=== PATIENT | female | born 1975 | race Caucasian/White ===

== ENCOUNTER 2018-01-23 22:39 | Observation (INO) | payer OTHER ==
[2018-01-23 23:07] VITALS: BMI 37.1
[2018-01-23] MEDS ORDERED: Sodium Chloride 0.9% 1,000 ML IV STA (23:53)
[2018-01-24 00:14] LABS: ALB/GLOB RATIO 1.3 (1.1-1.8); ALBUMIN 4.6 g/dL (3.0-4.8); ALT/SGPT 45 U/L (7-56); AST/SGOT 31 U/L (14-36); BLOOD UREA NITROGEN 18 mg/dL (7-21); CALCIUM 9.3 mg/dL (8.4-10.5); GFR NON-AFRICAN AMERICAN > 60; LIPASE 31 U/L (23-300)
[2018-01-24 00:23] LABS: BASO # 0.02 K/mm3 (0.0-2.0); BASO % 0.2 % (0.0-3.0); EOS # 0.1 (0.0-0.7); EOS % 1.2 % (1.5-5.0); GRAN # 9.54 (1.4-6.5); GRAN % 81.1 % (50.0-68.0); LYMPH # 1.6 (1.2-3.4); LYMPH % 13.8 % (22.0-35.0); MEAN CELL VOLUME 88.3 fl (80.0-105.0); MEAN CORPUSCULAR HEMOGLOBIN 29.8 pg (25.0-35.0); MEAN CORPUSCULAR HGB CONC 33.7 g/dl (31.0-37.0); MEAN PLATELET VOLUME 10.9 fl (7.0-11.0); MONO # 0.4 (0.1-0.6); MONO % 3.7 % (1.0-6.0); RBC 4.7 10^6/uL (3.5-6.1); RED CELL DISTRIBUTION WIDTH 12.9 % (11.5-14.5); URINE BILIRUBIN NEGATIVE (NEGATIVE); URINE BLOOD NEGATIVE (NEGATIVE); URINE GLUCOSE (UA) NEGATIVE (NEGATIVE); URINE LEUKOCYTE ESTERASE TRACE Leu/uL (NEGATIVE); URINE PROTEIN TRACE mg/dL (<30 mg/dL); URINE UROBILINOGEN 0.2 E.U./dL (<1 E.U./dL); WHITE BLOOD COUNT 11.8 10^3/uL (4.5-11.0)
[2018-01-24 00:30] LABS: URINE APPEARANCE CLEAR (CLEAR); URINE COLOR YELLOW (YELLOW)
[2018-01-24] MEDS ORDERED: Iohexol 350 MG/100 ML VIAL ONE (00:43)
[2018-01-24 00:51] LABS: URINE BACTERIA FEW (NEG); URINE RBC 0 - 2 /hpf (0-2)
--- NOTE | 2018-01-24 00:56 | ED PDOC ---
Arrival/HPI - General Chief Complaint: Abdominal Pain Time Seen by Provider: 01/23/18 23:21 Historian: Patient - History of Present Illness Narrative History of Present Illness (Text): 01/24/18 00:54 42-year-old female presents today with diffuse abdominal pain that started this morning. Patient states she woke up feeling fine shortly after eating breakfast states severe pain across the entire abdomen associated with nausea no vomiting. Patient states she was able to rest and the pain seemed to have improved and then around 3:00 the pain returned worse than earlier associated with multiple episodes of vomiting and diarrhea. Patient denies chest pain or shortness of breath. She is complaining of chronic back pain. Patient denies fevers or chills. Denies any urinary symptoms. No other complaints. Symptom Onset: Gradual Symptom Course: Intermittent Quality: Cramping Severity Level: Moderate Past Medical History - Provider Review Nursing Documentation Reviewed: Yes - Travel History Have you recently traveled outside [place] w/in the past 3 mons?: No - Infectious Disease Hx of Infectious Diseases: None - Reproductive Menopause: No Family/Social History - Physician Review Nursing Documentation Reviewed: Yes Family/Social History: Unknown Family HX Smoking Status: Light Smoker < 10 Cigarettes Daily Hx Alcohol Use: Yes Frequency of alcohol use: Socially Hx Substance Use: No Allergies/Home Meds Allergies/Adverse Reactions: Allergies No Known Allergies Allergy (Verified 01/23/18 23:10) Review of Systems - Review of Systems Constitutional: absent: Fatigue, Fevers Respiratory: absent: SOB, Cough Cardiovascular: absent: Chest Pain, Palpitations Gastrointestinal: Abdominal Pain, Diarrhea, Nausea, Vomiting. absent: Constipation Genitourinary Female: absent: Dysuria, Frequency, Hematuria Musculoskeletal: Back Pain. absent: Arthralgias, Neck Pain Skin: absent: Rash, Pruritis Neurological: absent: Headache, Dizziness Psychiatric: absent: Anxiety, Depression, Suicidal Ideation Physical Exam Vital Signs Reviewed: Yes Vital Signs Temp Pulse Resp BP Pulse Ox 01/23/18 23:07 97.6 F 85 18 174/98 H 99 Temperature: Afebrile Blood Pressure: Hypertensive Pulse: Regular Respiratory Rate: Normal Appearance: Positive for: Well-Appearing, Non-Toxic, Comfortable Pain Distress: None Mental Status: Positive for: Alert and Oriented X 3 - Systems Exam Head: Present: Atraumatic Mouth: Present: Moist Mucous Membranes Neck: Present: Normal Range of Motion Respiratory/Chest: Present: Clear to Auscultation, Good Air Exchange. No: Respiratory Distress, Accessory Muscle Use Cardiovascular: Present: Regular Rate and Rhythm, Normal S1, S2. No: Murmurs Abdomen: Present: Tenderness (+ ruq/luq epigastric tenderness. + llq tenderness ), Normal Bowel Sounds, Guarding (voluntary). No: Distention, Peritoneal Signs, Rebound Back: Present: Normal Inspection. No: CVA Tenderness, Midline Tenderness, Pa raspinal Tenderness Upper Extremity: Present: Normal ROM Lower Extremity: Present: Normal ROM Neurological: Present: GCS=15, Speech Normal Skin: Present: Warm, Dry, Normal Color. No: Rashes Psychiatric: Present: Alert, Oriented x 3 Medical Decision Making ED Course and Treatment: 01/24/18 00:59 Patient is nontoxic well appearing with stable vital signs presenting with severe abdominal pain n/v/d. CBC wbc; 11.8 CMP: glucose; 170 Lipase wnl Urinalysis trace leukocytes, + ketones CAT scan: COMMENTS: Uncomplicated colonic diverticulosis. Diffuse thickening of the colon. The liver is of uniform attenuation without mass or defect. There is no intra or extrahepatic biliary ductal dilatation. The spleen is normal. The gallbladder is surgically absent. The pancreas is of normal contour and attenuation characteristics. There is no evidence of adrenal mass. Both kidneys demonstrate prompt and equal nephrograms. The kidneys are normal in size, shape and configuration. There is no evidence of renal or ureteral mass. No renal or ureteral calculi are identified. There is no hydroureter or hydronephrosis. No evidence for appendicitis. No evidence for small or large bowel obstruction. There is no evidence of abdominal ascites or lymphadenopathy. There is no evidence of intrinsic or extrinsic bladder mass. There is no pelvic ascites or lymphadenopathy. Images of the lung bases show no evidence of pleural or parenchymal mass. There are no pleural effusions. The bony structures are free of lytic or blastic lesions. IMPRESSION: Uncomplicated colitis. Patient reassessment:pt with continued pain. blood cultures pending ct shows colitis. pt started on rocephin and flagyl IV. Discussed all results with patient in depth case discussed with dr. finley; accepts obs status admission for colitis and abdominal pain Impression: Abdominal pain, colitis, leukocytosis admit observational status med/surg - Lab Interpretations Lab Results: 01/23/18 23:55 01/23/18 23:55 Lab Results 01/23/18 23:55: Urine Color Yellow, Urine Appearance Clear, Urine pH 7.0, Ur Specific [place] 1.015, Urine Protein Trace H, Urine Glucose (UA) Negative, Urine Ketones 40 H, Urine Blood Negative, Urine Nitrate Negative, Urine Bilirubin Negative, Urine Urobilinogen 0.2, Ur Leukocyte Esterase Trace H, Urine RBC 0 - 2, Urine WBC 2 - 5, Ur Epithelial Cells 3 - 4, Urine Bacteria Few 01/23/18 23:55: WBC 11.8 H, RBC 4.70, Hgb 14.0, Hct 41.5, MCV 88.3, MCH 29.8, MCHC 33.7, RDW 12.9, Plt Count 337, MPV 10.9, Gran % 81.1 H, Lymph % (Auto) 13.8 L, [place] % (Auto) 3.7, Eos % (Auto) 1.2 L, Baso % (Auto) 0.2, Gran # 9.54 H, Lymph # (Auto) 1.6, [place] # (Auto) 0.4, Eos # (Auto) 0.1, Baso # (Auto) 0.02 01/23/18 23:55: Sodium 139, Potassium 4.1, Chloride 100, Carbon Dioxide 29, Anio n Gap 14, BUN 18, Creatinine 0.9, Est GFR ( Amer) > 60, Est GFR (Non-Af Amer) > 60, Random Glucose 170 H, Calcium 9.3, Total Bilirubin 0.3, AST 31, ALT 45, Alkaline Phosphatase 111, Total Protein 8.0, Albumin 4.6, Globulin 3.5, Albumin/Globulin Ratio 1.3, Lipase 31 - RAD Interpretation Radiology Orders: 01/24/18 00:01 ABD & PELVIS IV CONTRAST ONLY [CT] Stat - Medication Orders Current Medication Orders: Discontinued Medications Sodium Chloride (Sodium Chloride 0.9%) 1,000 mls @ 999 mls/hr IV .Q1H1M STA Stop: 01/24/18 00:53 Last Admin: 01/24/18 00:05 Dose: 999 mls/hr eMAR Start Stop Document 01/24/18 00:05 AD (Rec: 01/24/18 00:13 AD [id number]) Intravenous Solution Start Date 01/24/18 Start Time 00:05 Ondansetron HCl (Zofran Inj) 4 mg IVP STAT STA Stop: 01/23/18 23:54 Last Admin: 01/24/18 00:13 Dose: 4 mg IVP Administration Document 01/24/18 00:13 AD (Rec: 01/24/18 00:13 AD [id number]) Charges for Administration # of IVP Administrations 1 Pantoprazole Sodium (Protonix Inj) 40 mg IVP STAT STA Stop: 01/23/18 23:54 Last Admin: 01/24/18 00:13 Dose: 40 mg IVP Administration Document 01/24/18 00:13 AD (Rec: 01/24/18 00:13 AD [id number]) Charges for Administration # of IVP Administrations 1 Disposition/Present on Arrival - Present on Arrival Any Indicators Present on Arrival: No History of DVT/PE: No History of Uncontrolled Diabetes: No Urinary Catheter: No History of Decub. Ulcer: No History Surgical Site Infection Following: None - Disposition Have Diagnosis and Disposition been Completed?: Yes Diagnosis: Colitis, Abdominal pain, Leukocytosis Disposition: HOSPITALIZED Disposition Time: 01:40 Patient Plan: Observation Condition: FAIR Forms: [email or web address] (Vietnamese)
[2018-01-24] MEDS ORDERED: metroNIDAZOLE IV 500 mg/100 ml 500 MG/100 ML BAG IVPB STA (01:46)
[2018-01-24] MEDS ORDERED: cefTRIAXone 1 gm 1 GM/100 ML BAG IVPB STA (01:46)
[2018-01-24] MEDS ORDERED: Morphine 4 mg/ml ISec IVP STA (01:46)
[2018-01-24] MEDS ORDERED: metroNIDAZOLE IV 500 mg/100 ml 500 MG/100 ML BAG IVPB SCH (07:45)
--- NOTE | 2018-01-24 08:24 | CP.PCM.CON ---
History of Present Illness - History of Present Illness History of Present Illness: GI Fellow PGY4, Consult note. Delia Murray, 42F, hx of fibromyalgia, presenting with acute abdominal pain. The paid suddenly occured after eating breakfast, improved, and then dramatically worsened later the same day. She admits multiple episodes of non- bloody vomiting and diarrhea. No fever. She admits recurrent abdominal pains and frequent BMs chronically. She has never been evaluated by GI in the past, no EGD or colonoscopy. She was recently placed on 3 medications by PMD, Diclofenac, ranitidine, gabapentin. She denies recent abx, hospitalization, travel or sick contacts, undercooked food. She has been afebrile, slightly elevated WBC. CMP unremarkable. CT abd/pelv showed right sided colitis w/o complications. Today, she is feeling better last episode of vomiting and diarrhea was yesterday. She has tolerated liquids today. PMHx - as above. PSHx - No EGD or CSPY FMHx - Aunt had Crohns disease. Denies hx of GI cancer in relatives. SocHx - Smoke 1/2 PPD since teenager. Drinks alcohol rarely. 12pt ROS completed and negative except for above. Past Patient History - Infectious Disease Hx of Infectious Diseases: None - Past Social History Smoking Status: Light Smoker < 10 Cigarettes Daily - NEUROLOGICAL Other/Comment: fibromyalgia - MUSCULOSKELETAL/RHEUMATOLOGICAL Other/Comment: sciatica - PSYCHIATRIC Hx Substance Use: No - SURGICAL HISTORY Hx Surgeries: No - ANESTHESIA Hx Anesthesia: No Hx Anesthesia Reactions: No Hx Malignant Hyperthermia: No Meds Allergies/Adverse Reactions: Allergies Allergy/AdvReac Type Severity Reaction Status Date / Time No Known Allergies Allergy Verified 01/23/18 23:10 - Medications Medications: Current Medications Metronidazole (Flagyl) 500 mg in 100 mls @ 100 mls/hr IVPB Q8 [place]; Protocol Physical Exam - Constitutional Appears: Non-toxic, No Acute Distress - Head Exam Head Exam: ATRAUMATIC, NORMAL INSPECTION - Eye Exam Eye Exam: EOMI, Normal appearance - ENT Exam ENT Exam: Mucous Membranes Moist, Normal Exam - Respiratory Exam Respiratory Exam: Clear to Auscultation Bilateral, NORMAL BREATHING PATTERN - Cardiovascular Exam Cardiovascular Exam: REGULAR RHYTHM, +S1, +S2 - GI/Abdominal Exam GI & Abdominal Exam: Normal Bowel Sounds, Soft. absent: Organomegaly, Tenderness - Neurological Exam Neurological exam: Alert, CN II-XII Intact, Oriented x3 - Psychiatric Exam Psychiatric exam: Normal Affect, Normal Mood - Skin Skin Exam: Dry, Normal Color Results - Vital Signs Recent Vital Signs: Last Vital Signs Temp 97.6 F 01/23/18 23:07 Pulse 86 01/24/18 02:35 Resp 18 01/24/18 02:35 BP 155/84 H 01/24/18 02:35 Pulse Ox 100 01/24/18 02:35 - Labs Result Diagrams: 01/23/18 23:55 01/23/18 23:55 Labs: Laboratory Results - last 24 hr 01/23/18 01/23/18 01/23/18 23:55 23:55 23:55 WBC 11.8 H RBC 4.70 Hgb 14.0 Hct 41.5 MCV 88.3 MCH 29.8 MCHC 33.7 RDW 12.9 Plt Count 337 MPV 10.9 Gran % 81.1 H Lymph % (Auto) 13.8 L [place] % (Auto) 3.7 Eos % (Auto) 1.2 L Baso % (Auto) 0.2 Gran # 9.54 H Lymph # (Auto) 1.6 [place] # (Auto) 0.4 Eos # (Auto) 0.1 Baso # (Auto) 0.02 Sodium 139 Potassium 4.1 Chloride 100 Carbon Dioxide 29 Anion Gap 14 BUN 18 Creatinine 0.9 Est GFR ( Amer) > 60 Est GFR (Non-Af Amer) > 60 Random Glucose 170 H Calcium 9.3 Total Bilirubin 0.3 AST 31 ALT 45 Alkaline Phosphatase 111 Total Protein 8.0 Albumin 4.6 Globulin 3.5 Albumin/Globulin Ratio 1.3 Lipase 31 Urine Color Yellow Urine Appearance Clear Urine pH 7.0 Ur Specific [place] 1.015 Urine Protein Trace H Urine Glucose (UA) Negative Urine Ketones 40 H Urine Blood Negative Urine Nitrate Negative Urine Bilirubin Negative Urine Urobilinogen 0.2 Ur Leukocyte Esterase Trace H Urine RBC 0 - 2 Urine WBC 2 - 5 Ur Epithelial Cells 3 - 4 Urine Bacteria Few Assessment & Plan - Assessment and Plan (Free Text) Assessment: #Abdominal pain #Colitis #Suspected gastroenteritis #Fibromyalgia #Obesity #Tobacco dependence PLAN: - Differential includes infectious gastroenteritis, IBD, drug related (3 new drugs in the last several days, diclofenac, gabapentin, ranitidine) - Lab screening for IBD with inflammatory markers. CRP, stool calprotectin, IBD panel. - Recommend outpt colonoscopy and EGD - Continue diet - Continue Abx - Recommend slowly re-introducing medications ONE at a time to avoid any confusion of medication interaction. Mostly concerned about NSAID, would restart last or avoid if possible. - Date & Time Date: 01/24/18 Time: 09:49
[2018-01-24 08:55] VITALS: RESP 20
[2018-01-24 09:35] VITALS: BP 138/96; PULSE 98; TEMP 98.1; O2SAT 96
--- NOTE | 2018-01-24 15:44 | CT ---
Date of service: 01/24/2018 PROCEDURE: CT Abdomen and Pelvis with contrast HISTORY: Abd pain COMPARISON: CT abdomen with and without IV contrast performed 04/01/14 TECHNIQUE: Contrast dose: Omnipaque 350 Radiation dose: Total exam DLP = 1073.6 mGy-cm. This CT exam was performed using one or more of the following dose reduction techniques: Automated exposure control, adjustment of the mA and/or kV according to patient size, and/or use of iterative reconstruction technique. FINDINGS: LOWER THORAX: No visible consolidation, pleural effusion, or pneumothorax. LIVER: Unremarkable. GALLBLADDER AND BILE DUCTS: Cholecystectomy. PANCREAS: Unremarkable. SPLEEN: Unremarkable. ADRENALS: Unremarkable. KIDNEYS AND URETERS: The kidneys enhance symmetrically. No hydronephrosis or obstructing calculus identified. VASCULATURE: No aortic aneurysm. No atherosclerotic calcification or mural plaque present. BOWEL: Stomach is nondistended. Lack of oral contrast limits evaluation for bowel pathology. Bowel loops appear within normal limits of caliber without evidence of obstruction. Diffuse colonic wall thickening/wall edema; correlate for colitis. APPENDIX: The appendix appears within normal limits of caliber. No secondary signs of acute appendicitis. PERITONEUM: No significant free fluid. No definite free air. LYMPH NODES: No bulky adenopathy identified. BLADDER: Unremarkable. REPRODUCTIVE: The uterus is present. BONES: No acute osseous abnormality is detected. OTHER FINDINGS: None. IMPRESSION: Diffuse colonic wall thickening/wall edema; correlate for colitis. Preliminary impression was provided by [employer].
--- NOTE | 2018-01-26 09:39 | HP ---
DATE OF EXAM: 01/26/2018 HISTORY OF PRESENT ILLNESS: The patient is a 42-year-old female who presents to the emergency room with abdominal pain. The pain had been waxing and waning throughout the day, had been rather severe at times. It was not associated with vomiting or diarrhea. However, the patient is complaining of severe nauseousness during the pain and was not able to hold any interest in food. She denies urinary tract infections. She denies any chest pain or palpitation. PAST MEDICAL HISTORY: The patient has essentially no past medical history. SOCIAL HISTORY: She smokes less than half a pack of cigarettes a day. Drinks alcohol socially. ALLERGIES: HAS NO KNOWN MEDICAL ALLERGIES. MEDICATIONS: On admission were none. REVIEW OF SYSTEMS: Otherwise unremarkable. PHYSICAL EXAMINATION: VITAL SIGNS: Blood pressure is 174/98, heart rate was 85 and she was afebrile at 97.6 degrees Fahrenheit. Examination of the head, eyes, ears, nose and throat was unremarkable. NECK: Supple with no lymphadenopathy and no goiter. LUNGS: Clear to auscultation and percussion. HEART: Regular. No murmurs, gallops or rubs appreciated. ABDOMEN: Tense. There were normal bowel sounds on auscultation. There was tenderness in the right and left upper quadrants, as well as the epigastric area. There was no rebound tenderness and no CVA tenderness. EXTREMITIES: Free of cyanosis, clubbing or edema. NEUROLOGICAL: The patient was awake, alert and oriented with no focal neurological signs. CAT scan of the abdomen showed pancolitis with swelling of the large bowel throughout. LABORATORY STUDIES: Showed white cell count to be mildly elevated at 11.8, hemoglobin and hematocrit are 14.0 and 41.5, platelet count was 337,000. Sodium was 139, potassium was 4.2, blood urea nitrogen 18, creatinine 0.9 and glucose was 170. Liver enzymes were normal. Urinalysis was unremarkable. So the patient is admitted to observation for overnight. She is started on IV fluids. She is started on Flagyl and Cipro, and she will be reevaluated in the morning. Toño Morelos MD [facility] # [id number]
--- NOTE | 2018-01-26 16:57 | DS ---
The patient is a 42-year-old female with no past medical history, who was admitted yesterday with a diagnosis of pancolitis which was seen on CAT scan. The patient presented to the emergency room after complaining of waxing and waning abdominal pain across the upper abdomen. It was rather severe at times. Overnight, the patient did well. In the morning, the patient had some visitors bring her [employer], bagels and coffee, which she ate and tolerated well. When seen, she denied any abdominal pain, she was in good spirits and she was anxious to be discharged to home. The abdomen was only mildly tender on palpation. Bowel sounds were normal and as the patient tolerated bagel and coffee earlier and had no complaints, she was discharged to home in an improved condition. Prescriptions for Cipro 500 mg twice a day and Flagyl 500 mg three times a day were called into her local pharmacy. She will be evaluated in the office in followup next week. FINAL DIAGNOSIS: Pancolitis of the large intestine. Toño Morelos MD
== END 2018-01-24 14:14 | disposition home or self-care (01) ==
LOC: ED 22:39 → ERH 01-24 01:49 → 3RNO 01-24 02:44
PROVIDERS: ADMIT Internal Medicine; ATTEND Internal Medicine
DX: K52.9 Noninfective gastroenteritis and colitis, unspecified (principal); M79.7 Fibromyalgia; G89.29 Other chronic pain; E66.9 Obesity, unspecified; F17.210 Nicotine dependence, cigarettes, uncomplicated; M54.9 Dorsalgia, unspecified; Z68.37 Body mass index [BMI] 37.0-37.9, adult; M54.30 Sciatica, unspecified side
CPT/HCPCS: 74177; 80053; 81001; 81003; 83690; 85025; 87040; 87086; 96365; 96375; 96376; 99283; C9113; G0378; J0696; J1885; J2405; J7030; Q9967